=== PATIENT | male | born 1950 | race Caucasian/White ===

== ENCOUNTER 2020-11-17 21:11 | Emergency (ER) | payer BC ==
[2020-11-17] MEDS ORDERED: Lidocaine 2% with EPINEPHrine 1:100,000 20 ML MDV INJECT ONE (21:37)
[2020-11-17 21:47] VITALS: BP 146/88; PULSE 109
[2020-11-17] MEDS ORDERED: Bacitracin/Neomycin/Polymyxin B Oint 0.9 GM U/D Packet TOP ONE (21:52)
[2020-11-17] MEDS ORDERED: Diphtheria,Pertussis(Acell),Tetanus Vaccine 0.5 ML Syringe IM ONE (21:54)
--- NOTE | 2020-11-17 21:54 | EDM.PDOC ---
ED HPI GENERAL MEDICAL PROBLEM - General Chief Complaint: Laceration Stated Complaint: laceration Time Seen by Provider: 11/17/20 21:25 Source of Information: Reports: Patient - History of Present Illness INITIAL COMMENTS - FREE TEXT/NARRATIVE: Alex is a 70 y/o male who presents with a laceration to his left thumb. He cut his thumb on a magnetic grinder operator when he was working out in his shop. - Related Data Allergies Allergy/AdvReac Type Severity Reaction Status Date / Time No Known Allergies Allergy Verified 11/17/20 21:14 Home Meds: Home Meds Hydrochlorothiazide 1 tab PO DAILY 10/29/14 [History] Moexipril [Univasc] 1 tab PO DAILY 10/29/14 [History] amLODIPine Besylate [Amlodipine Besylate] 1 tab PO BEDTIME 10/29/14 [History] atorvaSTATin [Lipitor] 20 mg PO BEDTIME 10/29/14 [History] Aspirin [Adult Low Dose Aspirin EC] 81 mg PO DAILY 10/30/14 [History] Multivitamins [Tab-A-Zeynep] 1 tab PO DAILY 11/17/20 [History] Past Medical History HEENT History: Reports: Other (See Below) Other HEENT History: wisdom teeth removal. wear glasses Cardiovascular History: Reports: High Cholesterol, Hypertension - Infectious Disease History Infectious Disease History: Reports: Chicken Pox - Past Surgical History GI Surgical History: Reports: Other (See Below) Other GI Surgeries/Procedures: Spleenectomy Social & Family History - Tobacco Use Tobacco Use Status *Q: Never Tobacco User Second Hand Smoke Exposure: No - Caffeine Use Caffeine Use: Reports: Coffee - Recreational Drug Use Recreational Drug Use: No ED ROS GENERAL - Review of Systems Review Of Systems: See Below Constitutional: Reports: No Symptoms HEENT: Reports: No Symptoms Respiratory: Reports: No Symptoms Cardiovascular: Reports: No Symptoms Endocrine: Reports: No Symptoms GI/Abdominal: Reports: No Symptoms : Reports: No Symptoms Musculoskeletal: Reports: No Symptoms Skin: Reports: Wound (left thumb laceration) Neurological: Reports: No Symptoms Psychiatric: Reports: No Symptoms Hematologic/Lymphatic: Reports: No Symptoms Immunologic: Reports: No Symptoms ED EXAM, SKIN/RASH Exam: See Below Exam Limited By: No Limitations General Appearance: Alert, WD/WN, No Apparent Distress (Elderly male) Ears: Hearing Grossly Normal Head: Atraumatic, Normocephalic Respiratory/Chest: No Respiratory Distress Cardiovascular: Regular Rate, Rhythm GI/Abdominal: Soft (Male) Exam: Deferred Rectal (Males) Exam: Deferred Back Exam: Normal Inspection Extremities: Normal Inspection, Normal Capillary Refill Neurological: Alert, Oriented, CN II-XII Intact, No Motor/Sensory Deficits Psychiatric: Normal Affect, Normal Mood Skin: Warm, Dry, Intact Location, Skin: Other (Left Thumb laceration-1.5cm with clean edges, mild bleeding, no foreign bodies noted) Course - Vital Signs Text/Narrative:: 2124 The patient was seen by the LIVE STUDY MANAGER. The laceration was repaired. See Procedure Note. Procedure Note Laceration Repair Following verbal consent of the patient, risks, benefits, and alternatives were reviewed. The wound on the left thumb was prepped with Betadine. Lidocaine 2% with Epi was used for local anesthesia. 4 interrupted sutures were used for wound closure. Dressing was applied. Wound care instructions were reviewed. The patient tolerated the procedure well. Last Tetanus was verified as 2015. Tdap was given today. Discharge instructions were given and he left the ER in stable condition. Last Recorded V/S: Last Vital Signs Temp 36.9 C 11/17/20 21:30 Pulse 109 H 11/17/20 21:30 Resp 18 11/17/20 21:30 BP 146/88 H 11/17/20 21:30 Pulse Ox 96 11/17/20 21:30 - Orders/Labs/Meds Orders: Active Orders 24 hr Category Date Time Status Vaccines to be Administered [RC] PER UNIT ROUTINE Care 11/17/20 21:54 Ordered Diphth,Pertuss(Acell),Tet Vac [Boostrix] Med 11/17/20 21:54 Once 0.5 ml IM .ONCE ONE Medication Orders Diphtheria/Tetanus/Acell Pertussis (Diphtheria,Pertussis(Acell),Tetanus Vaccine 0.5 Ml Syringe) 0.5 ml IM .ONCE ONE Stop: 11/17/20 21:55 Meds: Medications Generic Name Dose Route Start Last Admin Trade Name Freq PRN Reason Stop Dose Admin Diphtheria/Tetanus/Acell Pertussis 0.5 ml 11/17/20 21:54 Diphtheria,Pertussis(Acell),Tetanus Vaccine 0.5 Ml Syringe IM 11/17/20 21:55 .ONCE ONE Discontinued Medications Generic Name Dose Route Start Last Admin Trade Name Freq PRN Reason Stop Dose Admin Lidocaine/Epinephrine 20 ml 11/17/20 21:37 11/17/20 21:42 Lidocaine 2% With Epinephrine 1:100,000 20 Ml Mdv INJECT 11/17/20 21:38 20 ml ONETIME ONE Administration Neomycin/Polymyxin/Bacitracin 1 each 11/17/20 21:52 Bacitracin/Neomycin/Polymyxin B Oint 0.9 Gm U/D Packet TOP 11/17/20 21:53 ONETIME ONE Departure - Departure Time of Disposition: 21:55 Disposition: Home, Self-Care 01 Condition: Good Clinical Impression: Need for Tdap vaccination Thumb laceration Qualifiers: Encounter type: initial encounter Damage to nail status: unspecified Foreign body presence: unspecified Laterality: left Qualified Code(s): S61.012A - Laceration without foreign body of left thumb without damage to nail, initial encounter Accident caused by powered hand tool Qualifiers: Encounter type: initial encounter Qualified Code(s): W29.8XXA - Contact with other powered hand tools and household machinery, initial encounter - Discharge Information *PRESCRIPTION DRUG MONITORING PROGRAM REVIEWED*: Not Applicable *COPY OF PRESCRIPTION DRUG MONITORING REPORT IN PATIENT ARNULFO: Not Applicable Instructions: Laceration Care, Adult Referrals: Bao Johnson PA [Primary Care Provider] - Forms: ED Department Discharge Sepsis Event Note (ED) - Evaluation Sepsis Screening Result: No Definite Risk - Focused Exam Vital Signs: Vital Signs Temp Pulse Resp BP Pulse Ox 11/17/20 21:30 36.9 C 109 H 18 146/88 H 96 - My Orders Last 24 Hours: My Active Orders 11/17/20 21:54 Vaccines to be Administered [RC] PER UNIT ROUTINE Diphth,Pertuss(Acell),Tet Vac [Boostrix] 0.5 ml IM .ONCE ONE - Assessment/Plan Last 24 Hours: My Active Orders 11/17/20 21:54 Vaccines to be Administered [RC] PER UNIT ROUTINE Diphth,Pertuss(Acell),Tet Vac [Boostrix] 0.5 ml IM .ONCE ONE Assessment:: 1)Left Thumb Laceration-1.5cm 2)S/P Simple Laceration Repair 3)Accident Caused by a Powered Hand Tool 4)Tetanus Immunization Plan: -Ibuprofen 200mg 3 tablets oral every 6 hours as needed for pain -Acetaminophen 325mg 2-3 tablets oral every 4-6 hours as needed for pain -Keep dressing to wound dry and intact for 24 hours, then you may wash the wound daily with soap and water. -Watch for signs of infection and seek care at the clinic or ER if needed -The sutures that were placed today will dissolve over the next 2-3 weeks, so you do not need to return to the clinic for removal. Allow them to dissolve and and do note attempt to pick or cut them out for at least 2 weeks. -Your Tetanus was updated at today's visit. Last TDap was in 2016.
== END 2020-11-17 22:15 | disposition home or self-care (01) ==
LOC: LL.ED 21:11
DX: S61.012A Laceration without foreign body of left thumb without damage to nail, initial encounter (principal); E78.00 Pure hypercholesterolemia, unspecified; I10 Essential (primary) hypertension; Z23 Encounter for immunization; Z79.82 Long term (current) use of aspirin; Z79.899 Other long term (current) drug therapy; W29.8XXA Contact with other powered hand tools and household machinery, initial encounter
CPT/HCPCS: 12001; 90471; 90715; 99282-25; 99283